=== PATIENT | male | born 1965 | race Caucasian/White ===

== ENCOUNTER 2017-04-17 05:49 | Day surgery (SDC) | payer BC, OTHER ==
[2017-04-17] MEDS ORDERED: Lactated Ringers 1,000 ML IV SCH (06:30)
[2017-04-17] MEDS ORDERED: ROBINUL IV ONE (08:30)
[2017-04-17] MEDS ORDERED: DIPRIVAN 200 MG/20 ML IV ONE (08:30)
[2017-04-17] MEDS ORDERED: Versed 2 MG/2 ML Injection IV ONE (08:30)
[2017-04-17 09:31] VITALS: BP 118/67; PULSE 84; O2SAT 97
--- NOTE | 2017-04-17 10:45 | OP ---
SURGERY DATE: 04/17/17 SURGERY TIME: 728 PREOPERATIVE DIAGNOSIS: 1. SCREENING EXAM. POSTOPERATIVE DIAGNOSIS: 1. NORMAL COLON. PROCEDURE: 1. Colonoscopy. SURGEON: Dr. Michelle. ANESTHESIA: MAC. Medications given by the Anesthesia Department. BRIEF HISTORY: The patient is a 52 y/o WM patient presenting now for his first screening colonoscopy. He was appraised of the risks of the procedure including the risk of perforation, phlebitis, untoward reaction to medication, bleeding, and missed lesions. The patient verbalized his understanding and desired to have the procedure performed. DESCRIPTION OF PROCEDURE: The patient was given the medications by the Anesthesia Department. He had continuous pulse oximetry, ECG monitoring, intermittent BP monitoring, and end tidal CO2 monitoring during the examination. He was placed in the left lateral decubitus position. A digital rectal examination was performed and revealed normal anal sphincter tone, no masses, and a normal prostate. The flexible Olympus pediatric colonoscope was used to intubate the rectum. A view of the colon was developed sequentially to the cecum. Upon insertion and withdrawal, including a retroflex view in the rectum, no mucosal lesions were encountered. The scope was then removed from the patient who tolerated the procedure well and was sent back to OP recovery in good condition. The prep was noted to be fair to good.
== END 2017-04-17 09:20 | disposition home or self-care (01) ==
LOC: SDC 05:49
PROVIDERS: ATTEND Family Medicine
PROC: 0DJD8ZZ Inspection of Lower Intestinal Tract, Via Natural or Artificial Opening Endoscopic (ICD-10-PCS; principal; 2017-04-17)
DX: Z12.11 Encounter for screening for malignant neoplasm of colon (principal)
CPT/HCPCS: 00810; J2250; J2704

== ENCOUNTER 2020-05-24 07:38 | Emergency (ER) | payer OTHER ==
--- NOTE | 2020-05-24 07:47 | ERPHSYRPT ---
- History of Present Illness Time Seen by Provider: 05/24/20 07:47 Source: patient Exam Limitations: no limitations Physician History: 55-year-old white male who chews tobacco but does not smoke tobacco and works in the coal [place] and presents with shortness of breath, history of recent left- sided chest pain that is an ache without radiation is now resolved and occurred yesterday, and right hand cramping that has now resolved and occurred yesterday as well. Patient has no headache and no visual changes. He is not on any medication. He does not have a primary care physician. He has no known primary lung disease or no known cardiac disease. He has had no fevers. He does state that he has had a mild cough. He has no abdominal pain and no nausea vomiting or diarrhea. He has no known exposure to anybody that is tested positive for the COVID-19 virus. Timing/Duration: yesterday Activities at Onset: none Severity of Dyspnea-Max: mild Severity of Dyspnea-Current: mild Possible Cause: no prior episodes Modifying Factors: Improves With: coughing Associated Symptoms: cough, chest pain/discomfort, No wheezing, No hemoptysis, No painful breathing, No tightness, No tingling face, No tingling hands Allergies/Adverse Reactions: cyclobenzaprine [From Flexeril] Allergy (Verified 05/24/20 07:46) Home Medications: No Reportable Medications [No Reported Medications] 04/01/17 [History] Travel Risk - International Travel Have you traveled outside of the country in past 3 weeks: No - Coronavirus Screening Are you exhibiting any of the following symptoms?: No Symptoms: Cough: New Onset, Shortness of Breath Close contact with a COVID-19 positive Pt in past 14-21 Days: No - Review of Systems Constitutional: No Symptoms Eyes: No Symptoms Ears, Nose, & Throat: No Symptoms Respiratory: Cough (Mild), Dyspnea (Mild ) Cardiac: Chest Pain (Yesterday, now resolved) Abdominal/Gastrointestinal: No Symptoms, No Abdominal Pain, No Nausea, No Vomiting, No Diarrhea, No Constipation, No Appetite Changes Genitourinary Symptoms: No Symptoms Musculoskeletal: No Symptoms Skin: No Symptoms (9) Neurological: No Symptoms Psychological: No Symptoms Endocrine: No Symptoms Hematologic/Lymphatic: No Symptoms Immunological/Allergic: No Symptoms All Other Systems: Reviewed and Negative - Past Medical History Pertinent Past Medical History: No Neurological History: No Pertinent History ENT History: No Pertinent History Cardiac History: No Pertinent History Respiratory History: No Pertinent History Endocrine Medical History: No Pertinent History Musculoskeletal History: Other GI Medical History: No Pertinent History History: No Pertinent History Psycho-Social History: No Pertinent History Male Reproductive Disorders: No Pertinent History Other Medical History: STATES HX OF SURGERY LEFT SHOULDER TO "SCRAPE TISSUE AWAY" YEARS AGO. - Past Surgical History Past Surgical History: Yes Neuro Surgical History: No Pertinent History Respiratory: No Pertinent History Gastrointestinal: No Pertinent History Genitourinary: No Pertinent History Musculoskeletal: Orthopedic Surgery Male Surgical History: No Pertinent History Other Surgical History: Shoulder scope - Social History Drug Use: none - Nursing Vital Signs Nursing Vital Signs: Initial Vital Signs Temperature 98.2 F 05/24/20 07:47 Pulse Rate 73 05/24/20 07:47 Respiratory Rate 16 05/24/20 07:47 Blood Pressure 157/93 05/24/20 07:47 O2 Sat by Pulse Oximetry 97 05/24/20 07:47 Pain Scale Pain Intensity 90 - Physical Exam General Appearance: no apparent distress, alert, anxiety Eye Exam: PERRL/EOMI, eyes nml inspection Ears, Nose, Throat Exam: hearing grossly normal Neck Exam: normal inspection, non-tender, supple, full range of motion Respiratory Exam: normal breath sounds, lungs clear, airway intact, No chest tenderness, No respiratory distress Cardiovascular/Chest Exam: normal heart sounds, regular rate/rhythm Abdominal/Gastrointestinal Exam: soft, normal bowel sounds, No tenderness Rectal Exam: not done Extremity Exam: non-tender, normal range of motion, normal inspection, normal capillary refill Neurologic Exam: alert, oriented x 3, cooperative, 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 No comparison EKG available.) Ordered Tests: Active Orders 24 hr Category Date Time Status Machine Fancy Stitcher STAT Care 05/24/20 08:08 Active EKG-ER Only STAT Care 05/24/20 08:07 Active IV Insertion STAT Care 05/24/20 08:07 Active Pulse Oximetry (ED) STAT Care 05/24/20 08:07 Active CHEST 1 VIEW (PORTABLE) Stat Exams 05/24/20 08:07 Completed CBC W DIFF Stat Lab 05/24/20 08:05 Completed CMP Stat Lab 05/24/20 08:05 Completed D-DIMER QUANTITATIVE Stat Lab 05/24/20 08:05 Completed NT PRO BNP Stat Lab 05/24/20 08:05 Completed PROTIME WITH INR Stat Lab 05/24/20 08:05 Completed TROPONIN Q3H Lab 05/24/20 08:05 Completed TROPONIN Q3H Lab 05/24/20 11:15 Ordered TROPONIN Q3H Lab 05/24/20 14:15 Ordered TROPONIN Q3H Lab 05/24/20 17:15 Ordered TROPONIN Q3H Lab 05/24/20 20:15 Ordered UA W/RFX UR CULTURE Stat Lab 05/24/20 08:08 Uncollected Medication Summary Discontinued Medications Generic Name Dose Route Start Last Admin Trade Name Freq PRN Reason Stop Dose Admin Aspirin 324 mg 05/24/20 08:07 05/24/20 08:56 Baby Aspirin 81 Mg Chew PO 05/24/20 08:08 324 mg STAT ONE Administration Aspirin Confirm 05/24/20 08:52 Baby Aspirin 81 Mg Chew Administered 05/24/20 08:53 Dose 324 mg .ROUTE .STK-MED ONE Sodium Chloride 1,000 mls @ 999 mls/hr 05/24/20 08:08 05/24/20 08:55 Sodium Chloride 0.9% 1000 Ml IV 05/24/20 09:08 999 mls/hr .Q1H1M STA Administration Sodium Chloride Confirm 05/24/20 08:53 Sodium Chloride 0.9% 1000 Ml Administered 05/24/20 08:54 Dose 1,000 mls @ ud .ROUTE .STK-MED ONE Lab/Rad Data: Laboratory Result Diagrams 05/24/20 08:05 05/24/20 08:05 Laboratory Results 05/24/20 05/24/20 05/24/20 Range/Units 08:05 08:05 08:05 WBC (4.0-10.5) K/mm3 RBC (4.1-5.6) M/mm3 Hgb (12.5-18.0) gm/dl Hct (42-50) % MCV (78-100) fl MCH (26-32) pg MCHC (32-36) g/dl RDW (11.5-14.0) % Plt Count (150-450) K/mm3 MPV (7.5-11.0) fl Gran % (36.0-66.0) % Eos # (Auto) (0-0.5) Absolute Lymphs (auto) (1.0-4.6) Absolute Monos (auto) (0.0-1.3) Lymphocytes % (24.0-44.0) % Monocytes % (0.0-12.0) % Eosinophils % (0.00-5.0) % Basophils % (0.0-0.4) % Absolute Granulocytes (1.4-6.9) Basophils # (0-0.4) PT 11.5 (8.83-12.87) SECONDS INR 1.02 (0.8-3.0) D-Dimer 365 (215-500) ng/mL Sodium 139 (137-145) mmol/L Potassium 3.7 (3.5-5.1) mmol/L Chloride 107 (98-107) mmol/L Carbon Dioxide 25 (22-30) mmol/L Anion Gap 11.5 (5-15) MEQ/L BUN 17 (9-20) mg/dL Creatinine 1.00 (0.66-1.25) mg/dL Estimated GFR > 60.0 ML/MIN Glucose 151 H (74-106) mg/dL Calcium 9.5 (8.4-10.2) mg/dL Total Bilirubin 0.40 (0.2-1.3) mg/dL AST 25 (17-59) U/L ALT 32 (0-50) U/L Alkaline Phosphatase 71 (38-126) U/L Troponin I < 0.012 (0.000-0.034) ng/mL NT-Pro-B Natriuret Pep 24.5 (0-900) pg/mL Serum Total Protein 7.4 (6.3-8.2) g/dL Albumin 4.4 (3.5-5.0) g/dL 05/24/20 Range/Units 08:05 WBC 6.4 (4.0-10.5) K/mm3 RBC 5.33 (4.1-5.6) M/mm3 Hgb 15.8 (12.5-18.0) gm/dl Hct 46.8 (42-50) % MCV 87.8 (78-100) fl MCH 29.6 (26-32) pg MCHC 33.8 (32-36) g/dl RDW 13.2 (11.5-14.0) % Plt Count 210 (150-450) K/mm3 MPV 9.6 (7.5-11.0) fl Gran % 65.6 (36.0-66.0) % Eos # (Auto) 0.22 (0-0.5) Absolute Lymphs (auto) 1.30 (1.0-4.6) Absolute Monos (auto) 0.66 (0.0-1.3) Lymphocytes % 20.2 L (24.0-44.0) % Monocytes % 10.3 (0.0-12.0) % Eosinophils % 3.4 (0.00-5.0) % Basophils % 0.5 (0.0-0.4) % Absolute Granulocytes 4.22 (1.4-6.9) Basophils # 0.03 (0-0.4) PT (8.83-12.87) SECONDS INR (0.8-3.0) D-Dimer (215-500) ng/mL Sodium (137-145) mmol/L Potassium (3.5-5.1) mmol/L Chloride (98-107) mmol/L Carbon Dioxide (22-30) mmol/L Anion Gap (5-15) MEQ/L BUN (9-20) mg/dL Creatinine (0.66-1.25) mg/dL Estimated GFR ML/MIN Glucose (74-106) mg/dL Calcium (8.4-10.2) mg/dL Total Bilirubin (0.2-1.3) mg/dL AST (17-59) U/L ALT (0-50) U/L Alkaline Phosphatase (38-126) U/L Troponin I (0.000-0.034) ng/mL NT-Pro-B Natriuret Pep (0-900) pg/mL Serum Total Protein (6.3-8.2) g/dL Albumin (3.5-5.0) g/dL - Progress Progress: improved, unchanged Air Movement: good Progress Note: 05/24/20 08:51 Chest x-ray shows no acute pulmonary process. Blood Culture(s) Obtained: No Antibiotics given: No Counseled pt/family regarding: lab results, diagnosis, need for follow-up, rad results - Departure Departure Disposition: Home Clinical Impression: Shortness of breath Condition: Stable Critical Care Time: No Additional Instructions: Follow-up with the primary care physician for evaluation and possible referral to both a office services clerk and faculty neuropsychologist.
[2020-05-24] MEDS ORDERED: BABY ASPIRIN 81 MG CHEW PO ONE (08:07)
[2020-05-24] MEDS ORDERED: Sodium Chloride 0.9% 1000 ML 1,000 ML IV STA (08:08)
[2020-05-24 08:28] LABS: Absolute Neutrophil Ct (ANC) 4.22 (1.4-6.9); BASOPHIL % 0.5 % (0.0-0.4); Basophil (Absolute #) 0.03 (0-0.4); Eosinophil % 3.4 % (0.00-5.0); Eosinophil (Absolute #) 0.22 (0-0.5); Hematocrit 46.8 % (42-50); Hemoglobin 15.8 gm/dl (12.5-18.0); Lymphocytes % 20.2 % (24.0-44.0); Mean Cell Volume 87.8 fl (78-100); Mean Corpuscular Hemoglobin 29.6 pg (26-32); Mean Corpuscular Hgb Concent. 33.8 g/dl (32-36); Mean Platelet Volume 9.6 fl (7.5-11.0); Monocyte (Absolute #) 0.66 (0.0-1.3); Monocytes % 10.3 % (0.0-12.0); Neutrophil % 65.6 % (36.0-66.0); Platelet Count 210 K/mm3 (150-450); Red Blood Count 5.33 M/mm3 (4.1-5.6); Red Cell Distribution Width 13.2 % (11.5-14.0); White Blood Count 6.4 K/mm3 (4.0-10.5)
[2020-05-24 08:33] LABS: INR 1.02 (0.8-3.0); PROTIME 11.5 SECONDS (8.83-12.87)
--- NOTE | 2020-05-24 08:33 | XRAY ---
Indication: Short of breath. Chest pain. Comparison: None Portable chest demonstrates normal heart and lungs with a few incidental tiny calcified granulomas. Bony thorax intact with mild degenerative changes. Impression: Nonacute chest with chronic features.
[2020-05-24] MEDS ORDERED: BABY ASPIRIN 81 MG CHEW ONE (08:52)
[2020-05-24] MEDS ORDERED: Sodium Chloride 0.9% 1000 ML 1,000 ML ONE (08:53)
[2020-05-24 09:16] LABS: ALBUMIN 4.4 g/dL (3.5-5.0); ALKALINE PHOSPHATASE 71 U/L (38-126); ANION GAP 11.5 MEQ/L (5-15); BLOOD UREA NITROGEN 17 mg/dL (9-20); CHLORIDE 107 mmol/L (98-107); Calcium 9.5 mg/dL (8.4-10.2); Carbon Dioxide 25 mmol/L (22-30); Glucose 151 mg/dL (74-106); NT PRO BNP 24.5 pg/mL (0-900); Potassium 3.7 mmol/L (3.5-5.1); SGOT/AST 25 U/L (17-59); SGPT/ALT 32 U/L (0-50); SODIUM 139 mmol/L (137-145); Total Protein 7.4 g/dL (6.3-8.2)
[2020-05-24 09:33] VITALS: BP 142/101; PULSE 66; O2SAT 98
[2020-05-24 10:39] LABS: Appearance CLEAR (CLEAR); Bilirubin NEGATIVE (NEGATIVE); Blood NEGATIVE Ery/ul (0-5); Glucose NEGATIVE (NEGATIVE); Ketones NEGATIVE (NEGATIVE); Leukocyte Esterase NEGATIVE (NEGATIVE); Mucus SLIGHT /HPF (NEGATIVE); Nitrite NEGATIVE (NEGATIVE); Protein,Urine Dip NEGATIVE (Negative); RBC 0-2 /HPF (0-2); Specific Gravity 1.028 (1.005-1.025); Urobilinogen 2 mg/dL (0-1)
== END 2020-05-24 10:12 | disposition home or self-care (01) ==
LOC: ED 07:38
DX: R06.02 Shortness of breath (principal)
CPT/HCPCS: 36000; 36415; 71045; 80053; 81001; 83880; 84484; 85025; 85379; 85610; 93005; 93041; 94760; 99284; A9270-GY

== ENCOUNTER 2020-09-03 08:18 | Day surgery (SDC) | payer OTHER ==
--- NOTE | 2020-09-03 07:57 | HP ---
DATE OF SURGERY: 09/03/2020 HISTORY OF PRESENT ILLNESS: The patient is a 55 year old who ended up having a fissure, some internal and external hemorrhoids. He had improved some on diltiazem cream as far as the fissure standpoint. Otherwise he is in need of follow up colonoscopy as his last colonoscopy was years ago and possible internal hemorrhoid banding in same setting. PAST MEDICAL HISTORY: He denies any chronic illnesses. PAST SURGICAL HISTORY: Right shoulder surgery in the past. He had colonoscopy in the past. MEDICATIONS: None on a regular basis. ALLERGIES: FLEXERIL. FAMILY HISTORY: Negative for colon cancer or inflammatory bowel disease. His mother did have, I think he mentioned, breast cancer. SOCIAL HISTORY: No smoking. He reports some alcohol use, denies abuse. REVIEW OF SYSTEMS: Fourteen systems reviewed. No chest pain or palpitations. Other systems negative or noncontributory as above and per preadmission questionnaire. PHYSICAL EXAMINATION: GENERAL: No acute distress. HEENT: Sclerae nonicteric. NECK: No JVD. CHEST: Equal excursion, nonlabored breathing. CVS: Regular rate and rhythm. ABDOMEN: Soft. No peritoneal signs. EXTREMITIES: No significant edema. NEURO: Alert, oriented, moving extremities symmetrically. No gross motor deficits noted. RECTAL: He has got some internal and external hemorrhoids. The area of fissure has improved. PSYCH: Appropriate mood and affect. IMPRESSION: History of some rectal pain and burning. He has history of fissure. His last colonoscopy was years ago. He has some internal and external hemorrhoids. He is in need of follow up colonoscopy as well as possible internal hemorrhoid banding. I feel he is a candidate. He was explained the risks in detail including but not limited to bleeding or infection, risk of bowel injury or perforation possibly requiring open procedure, risk of missed or nondiagnosis or incomplete exam possibly requiring barium enema, other studies or procedures, general risk of anesthesia or sedation, risk of bowel prep. Regarding hemorrhoids, if his hemorrhoids are prominent enough at the time of the surgery plan on banding. General risk of bleeding, remote risk of infection or deeper infection possibly requiring major operative intervention. He understands the overall risk of progression of hemorrhoidal disease possibly requiring other procedures, other banding or excision down the road, risk of sphincter spasm or irritability transient, small risk of bleeding usually resolves over time, general risk of aches and pains, risk of sedation or bowel prep but not limited to, will proceed with colonoscopy possible internal hemorrhoid banding as an outpatient.
[~2020-09-03 08:18] MED LIST: DIPRIVAN 200 MG/20 ML IV ONE; Ephedrine Sulfate 50 MG/ML ONE; ROBINUL ONE
[2020-09-03] MEDS ORDERED: Lactated Ringers 1,000 ML IV SCH (09:30)
[2020-09-03] MEDS ORDERED: NORCO 5/325 MG PO ONE (11:48)
[2020-09-03 12:41] VITALS: BP 126/79; PULSE 91; O2SAT 95
--- NOTE | 2020-09-04 08:05 | OP ---
SURGERY DATE/TIME: 09/03/2020 1046 PREOPERATIVE DIAGNOSES: 1) History of rectal pain and burning, need for follow up screening colonoscopy. 2) Internal and external hemorrhoids. POSTOPERATIVE DIAGNOSES: 1) Internal and external hemorrhoids. 2) Fair prep. 3) Diverticulosis. 4) Small polyp rectosigmoid colon. 5) Withdrawal time 8 minutes. 6) ASA Class 1. 7) Appendiceal orifice and ileocecal valve photo documented. PROCEDURES: 1) Colonoscopy to cecum and hot biopsy removal of rectosigmoid colon polyp. 2) Internal hemorrhoid banding x2 columns (left lateral and right anterior). SURGEON: Dr. Burton Zuniga. ANESTHESIA: MAC. ESTIMATED BLOOD LOSS: Minimal. INDICATIONS: As noted above. Risks and benefits explained in detail but not limited to and consent obtained. DESCRIPTION OF PROCEDURE AND FINDINGS: The patient is taken to the operating room. MAC anesthesia introduced. After official time out and no disagreement with planned procedure, digital rectal exam revealed some internal and external hemorrhoids. There were previous fissures appear to be doing better. Otherwise no other digital rectal mass. Video colonoscope inserted and passed up through the rectum, transverse, descending, ascending colon to the cecum. Appendiceal orifice and valve well visualized. Prep overall was fair. There was some liquidy and semisolid stool suctioned irrigated as clear as possible. ASA Class 1. The scope is slowly and carefully withdrawn over the next eight minutes. He did have some mild diverticulosis in the left colon. He did have a small 2 mm polyp in the rectosigmoid colon that was removed with hot biopsy forceps with brief bursts of cautery. Good hemostasis noted. Otherwise there were no signs of any large polyps, masses or obstructing lesions. The appendiceal orifice and ileocecal valve had been photo documented. The scope pulled back to the rectum. He had some internal and external hemorrhoids. His chief complaint had been problems with internal hemorrhoids. It was felt that he would benefit from banding. There were two or three columns there quite prominent with grade II to almost III internal and external hemorrhoids. The scope was withdrawn after the hot biopsy polypectomy of the small rectosigmoid colon polyp. Good hemostasis noted. The scope is withdrawn. Under MAC anesthesia half-rivera retractor carefully inserted inspecting left lateral, right posterior and right anterior columns. The left lateral and right anterior were felt to warrant banding. The right posterior seemed to be a little smaller and did not warrant banding at this point. Therefore half-mood retracted carefully inserted. Suction poultry farm laborer grasping the top edge of hemorrhoidal complex. Band is fired in the left lateral position and the right anterior position. Good hemostasis noted. The patient tolerated the procedure well. There were no immediate complications. He did not have any family here to discuss the findings with. I will see him back in the office next week. To do high fiber diet, warm water sitz bath daily PRN.
== END 2020-09-03 12:42 | disposition home or self-care (01) ==
LOC: SDC 08:18
PROVIDERS: ATTEND Surgery
DX: Z12.11 Encounter for screening for malignant neoplasm of colon (principal); K64.4 Residual hemorrhoidal skin tags; K64.8 Other hemorrhoids; K57.30 Diverticulosis of large intestine without perforation or abscess without bleeding; K63.5 Polyp of colon
CPT/HCPCS: 88305; J2704; A9270-GY

== ENCOUNTER 2022-09-17 15:54 | Day surgery (SDC) | payer BC ==
[2022-09-17] MEDS ORDERED: Decadron 4 MG INJ IV ONE (15:55)
[2022-09-17] MEDS ORDERED: Xylocaine 1% Vial 30 ML PF IJ ONE (15:55)
[2022-09-17] MEDS ORDERED: Sodium Chloride 0.9(Preservative Free) 10 ML IJ ONE (15:55)
--- NOTE | 2022-09-17 19:26 | XRAY ---
Indication: Cervical ANA. Intraoperative fluoroscopy provided for 39 seconds. 2 digital spot images submitted for interpretation demonstrates posterior needle tip projecting posterior to cervical thoracic junction. Small amount of contrast injected for needle tip placement. Correlate with intraoperative findings/report.
--- NOTE | 2022-09-18 09:42 | XRAY ---
39 seconds of fluoroscopy was used in surgery for a cervical ANA.
== END 2022-09-17 17:30 | disposition home or self-care (01) ==
LOC: SDC-PAIN 15:54
PROVIDERS: ATTEND Psychiatry & Neurology Pain Medicine
DX: M54.12 Radiculopathy, cervical region (principal); Z79.899 Other long term (current) drug therapy
CPT/HCPCS: 62321; 72040; 77003; J1100; J2001; Q9966